=== PATIENT | male | born 1960 | race Caucasian/White ===

== ENCOUNTER 2020-06-16 02:46 | Emergency (ER) | payer MEDICAID ==
[~2020-06-16] VITALS: Ht 172.7 cm; Wt 81.8 kg
[2020-06-16] MEDS ORDERED: ondansetron/PF 4mg/2ml inj IV ONE (05:00)
[2020-06-16] MEDS ORDERED: LORazepam 2 mg/ml vial IV ONE (05:00)
[2020-06-16] MEDS ORDERED: normal saline 1000ML IV soln IVB ONE (05:00)
[2020-06-16] MEDS ORDERED: pantoprazole 40 MG vial IV ONE (05:00)
[2020-06-16 05:46] LABS: BASOPHILS # (AUTO) 0.1 X10'3 (0-0.2); EOSINOPHILS # (AUTO) 0.3 X10'3 (0-0.9); EOSINOPHILS % (AUTO) 3.3 % (0-6); HEMATOCRIT 42.6 % (42.0-52.0); HEMOGLOBIN 14.7 g/dl (14.0-17.9); LYMPHOCYTES # (AUTO) 2.7 X10'3 (1.1-4.8); LYMPHOCYTES % (AUTO) 32.4 % (21-51); MEAN CORPUSCULAR HEMOGLOBIN 31.8 PG (27.0-31.0); MEAN CORPUSCULAR HGB CONC 34.5 g/dL (33.0-36.5); MEAN CORPUSCULAR VOLUME 92.3 FL (78-98); MEAN PLATELET VOLUME 8.1 FL (7.4-10.4); MONOCYTES % (AUTO) 12.5 % (2-12); NEUTROPHILS # (AUTO) 4.2 X10'3 (1.8-7.7); NEUTROPHILS % (AUTO) 50.8 % (42-75); PLATELET COUNT 98 X10'3 (140-440); RED BLOOD COUNT 4.62 X10'6 (4.70-6.10); RED CELL DISTRIBUTION WIDTH 16.2 % (11.5-14.5); WHITE BLOOD COUNT 8.2 X10'3 (4.5-11.0)
[2020-06-16 05:59] LABS: CLARITY,URINE CLEAR (Clear); COLOR,URINE YELLOW (Yellow); GLUCOSE, URINE NEGATIVE (Neg); KETONES,URINE 15 mg/dl (Neg); LEUKOCYTE ESTERASE ,URINE NEGATIVE (Neg); NITRITES, URINE NEGATIVE (Neg); OCCULT BLOOD,URINE NEGATIVE (Neg); PROTEIN,URINE NEGATIVE (Neg); UROBILINOGEN,URINE 0.2 E.U/dL (0.2-1.0)
[2020-06-16 06:01] LABS: UA COLLECTION TYPE NON-SPECIFIED
[2020-06-16 06:02] LABS: ALANINE AMINOTRANSFERASE 60 U/L (12-78); ALKALINE PHOSPHATASE 96 IU/L (46-116); ANION GAP 10 (8-16); CALCIUM 9.5 MG/DL (8.5-10.1); CHLORIDE 102 MMOL/L (99-107); CREATININE 0.66 MG/DL (0.60-1.10); LIPASE 208 U/L (73-393); POTASSIUM 3.6 MMOL/L (3.5-5.1); SODIUM 137 MMOL/L (135-145); TOTAL CARBON DIOXIDE 24.8 MMOL/L (24-32); eGFR > 90 ML/MIN
[2020-06-16 06:04] LABS: ALBUMIN 3.7 G/DL (3.4-5.0); BILIRUBIN,TOTAL 0.4 MG/DL (0.1-1.0); BLOOD UREA NITROGEN 9 MG/DL (7-18); BUN/CREATININE RATIO 13.6 (5.4-32.0); GLUCOSE 81 MG/DL (70-104); TOTAL PROTEIN 8.4 G/DL (6.4-8.2)
[2020-06-16 06:05] LABS: ALBUMIN/GLOBULIN RATIO 0.8 (1.1-1.5); ASPARTATE AMINO TRANSFERASE 54 U/L (10-37)
[2020-06-16 07:20] VITALS: BP 127/55
== END 2020-06-16 07:27 | disposition home or self-care (01) ==
LOC: ER 02:47
DX: F10.20 Alcohol dependence, uncomplicated (principal); R07.89 Other chest pain; R10.84 Generalized abdominal pain; R11.10 Vomiting, unspecified; F41.9 Anxiety disorder, unspecified; F32.9 Major depressive disorder, single episode, unspecified; F17.200 Nicotine dependence, unspecified, uncomplicated; Z72.89 Other problems related to lifestyle; Y90.9 Presence of alcohol in blood, level not specified
CPT/HCPCS: 71046; 80053; 81003; 83690; 85025; 93005; 96361; 96374; 96375; 99285; C9113; J2060; J2405; J7030; 84484